=== PATIENT | female | born 1995 | race American Indian/Alaskan Native ===

== ENCOUNTER 2018-05-25 18:08 | Emergency (ER) | payer OTHER ==
[2018-05-25 18:16] VITALS: BP 145/78; PULSE 88; TEMP 98.3; BMI 24.9
[2018-05-25] MEDS ORDERED: IBUPROFEN 600 MG TABLET (FP) PO ONE ×2 (18:25→18:26)
--- NOTE | 2018-05-25 18:32 | PDOC ---
History of Present Illness - General Chief Complaint: Injury Stated Complaint: INJURY Time Seen by Provider: 05/25/18 18:20 History Source: Patient Exam Limitations: No Limitations - History of Present Illness Initial Comments: 05/25/18 18:27 22 yr female with left thumb injury at work today. Pt states it was bent backwards during an aggressive student at her job. Past History - Past Medical History Allergies/Adverse Reactions: Allergies Allergy/AdvReac Type Severity Reaction Status Date / Time acetaminophen [From Tylenol] AdvReac Verified 05/25/18 18:17 Home Medications: Ambulatory Orders NK [No Known Home Medication] 05/25/18 COPD: No - Suicide/Smoking/Psychosocial Hx Smoking History: Never smoked *Physical Exam - Vital Signs Last Vital Signs Temp Pulse Resp BP Pulse Ox 98.3 F 88 18 145/78 99 05/25/18 18:13 05/25/18 18:13 05/25/18 18:13 05/25/18 18:13 05/25/18 18:13 - Physical Exam General Appearance: Yes: Nourished, Appropriately Dressed HEENT: positive: EOMI, RUTH ANN, Normal ENT Inspection, TMs Normal, Pharynx Normal Neck: positive: Supple. negative: Tender Respiratory/Chest: positive: Lungs Clear, Normal Breath Sounds Cardiovascular: positive: Regular Rhythm, Regular Rate Musculoskeletal: positive: Normal Inspection Extremity: positive: Normal Capillary Refill, Normal Inspection, Normal Range of Motion, Tender (base of the thumb no deformity nv intact ) Integumentary: positive: Normal Color, Dry, Warm Neurologic: positive: Fully Oriented, Alert, Normal Mood/Affect, Normal Response , Motor Strength 5/5 ED Treatment Course - RADIOLOGY Radiology Studies Ordered: Category Date Time Status FINGER(S) LEFT [RAD] Stat Radiology 05/25/18 18:25 Ordered Medical Decision Making - Medical Decision Making 05/25/18 18:27 cc: left thumb injury bent backwards at work will get xray *DC/Admit/Observation/Transfer Diagnosis at time of Disposition: Sprained thumb Qualifiers: Encounter type: initial encounter Sprain of finger site: metacarpophalangeal joint Laterality: left Qualified Code(s): S63.642A - Sprain of metacarpophalangeal joint of left thumb, initial encounter - Discharge Dispostion Disposition: HOME Condition at time of disposition: Good - Referrals Referrals: Omi Harman MD [Staff Physician] - - Patient Instructions Additional Instructions: follow with the orthopedist this week take ibuprofen 800mg every 8hrs for pain apply ice every 2hrs for 20 minutes for 2 days - Post Discharge Activity Forms/Work/School Notes: Back to Work
== END 2018-05-25 19:00 | disposition home or self-care (01) ==
LOC: JERFT 18:08
DX: S63.642A Sprain of metacarpophalangeal joint of left thumb, initial encounter (principal); X50.0XXA Overexertion from strenuous movement or load, initial encounter; Y93.89 Activity, other specified; Y92.118 Other place in children's home and orphanage as the place of occurrence of the external cause; Y99.0 Civilian activity done for income or pay
CPT/HCPCS: 73140-TC-LT-FY; 99282-25